=== PATIENT | male | born 1955 | race Caucasian/White ===

== ENCOUNTER 2018-02-14 12:55 | Emergency (ER) | payer OTHER ==
[~2018-02-14] VITALS: Ht 182.9 cm; Wt 90.7 kg
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
[2018-02-14] MEDS ORDERED: LIDOCAINE 1%-EPI 1:100,000 20 ML VIAL ONE (13:19)
--- NOTE | 2018-02-14 14:35 | NUR ---
Collar removed PER ER MD ORDER. Patient able to move all extremities before and after C COLLAR removal.
--- NOTE | 2018-02-14 14:39 | NUR ---
Patient discharged to home in stable condition. Written and verbal after care instructions given. Patient verbalizes understanding of instruction.
[2018-02-14 14:40] VITALS: BP 142/78
--- NOTE | 2018-02-14 14:40 | NUR ---
PATIENT AMBULATES OUT OF ER WITH STABLE GAIT. AAOX3.
== END 2018-02-14 14:41 | disposition home or self-care (01) ==
LOC: ER 12:57
DX: S01.81XA Laceration without foreign body of other part of head, initial encounter (principal); R60.0 Localized edema; I10 Essential (primary) hypertension; Z96.651 Presence of right artificial knee joint; V19.88XA Pedal cyclist (driver) (passenger) injured in other specified transport accidents, initial encounter; Y93.89 Activity, other specified; Y92.410 Unspecified street and highway as the place of occurrence of the external cause; Y99.8 Other external cause status
CPT/HCPCS: 12052; 70450; 72125; 99284; A4606; A6402 ×2; J3490; L0172; Z7610